=== PATIENT | female | born 2000 | race Caucasian/White ===

== ENCOUNTER 2020-03-21 | Inpatient (IN) ==
[2020-03-21] MEDS ORDERED: OXYTOCIN/DEXTROSE 5%-WATER 30 UNITS/500 ML BAG IV ONE ×2 (00:05→17:49)
[2020-03-21] MEDS ORDERED: RINGER'S SOLUTION,LACTATED 1,000 ML IV ONE (00:05)
[2020-03-21] MEDS ORDERED: ONDANSETRON 4 MG TAB.RAPDIS PO PRN (00:05)
[2020-03-21] MEDS ORDERED: PENICILLIN G POTASSIUM 5 MILLIONUNT in DEXTROSE 5 % IN WATER 100 ML IV ONE ×2 (00:05)
[2020-03-21] MEDS ORDERED: BUTORPHANOL TARTRATE 2 MG/ML VIAL IV PRN ×2 (00:05)
[2020-03-21] MEDS ORDERED: LIDOCAINE HCL 50 ML VIAL PERI PRN (00:05)
[2020-03-21] MEDS: RINGER'S SOLUTION,LACTATED 1,000 ML IV PRN ×2 (00:23→08:20)
[2020-03-21 01:24] LABS: Cocaine Ur Negative (NEGATIVE); Urine Barbiturate Negative (NEGATIVE); Urine Benzodiazepines Negative (NEGATIVE); Urine Opiates Negative (NEGATIVE); Urine PCP Negative (NEGATIVE)
[2020-03-21 01:28] LABS: Urine THC Positive (NEGATIVE)
[2020-03-21] MEDS: PENICILLIN G POTASSIUM 2.5 MILLIONUNT in DEXTROSE 5 % IN WATER 100 ML IV SCH ×6 (04:28→12:30)
--- NOTE | 2020-03-21 09:00 | HP ---
Chief Complaint - Chief Complaint Date of Service: 03/21/20 Time of Service: 08:50 Chief Complaint: Induction of labor History of Present Illness: 19 year old at 39w 0d who presents to labor and delivery for an elective IOL. She reports regular ctx. She denies vb or lof. Fetus is active. Medical History (Last Reviewed 03/21/20 @ 08:55 by Ale Patel MD) Anxiety Borderline personality disorder Surgical History: Surgical History (Last Reviewed 03/21/20 @ 08:55 by Ale Patel MD) H/O myringotomy History of adenoidectomy Hx of tonsillectomy Family History: Family History (Last Reviewed 03/21/20 @ 08:55 by Ale Patel MD) Mother Diabetes Asthma COPD (chronic obstructive pulmonary disease) Father Anxiety Social History: (Last Reviewed 03/21/20 @ 08:55 by Ale Patel MD) Social History: adopted: No Marital status: Single household members: family current occupational status: unemployed current occupational exposures/hazards: No Highest education level completed: 10th grade Service: No Tobacco: Smoking Status: Current every day smoker tobacco type: cigarettes Smoking cigarettes per day: 2 Years smoked: 8 Smoking pack-years: 0.80 Alcohol: details: none since +UPT Substance Use: substance use type: marijuana, methamphetamine, prescription drug, other details: resperidol Dietary Habits: caffeine: No Pets: pets and animals: dog(s) Review Of Systems (GEN) - Review of Systems Generalized/Overall Review: Present: No Symptoms Reported Misc: All systems neg except as marked Allergies/Adverse Reactions: Allergies Allergy/AdvReac Type Severity Reaction Status Date / Time No Known Allergies Allergy Verified 03/21/20 00:07 Home Medications: HOME MEDICATIONS buspirone 10 mg tablet 10 mg PO BID #60 tab 01/05/20 [Last Taken Unknown] prenat.vits,sandie,xse-ouha-ytemw 1 tab PO DAILY #90 tab 01/05/20 [Last Taken Unknown] Exam - Exam Vital Signs: Vital Signs - Last Taken Temp 36.1 C 03/21/20 00:32 Pulse 118 H 03/21/20 00:32 Resp 22 H 03/21/20 00:32 BP 120/58 03/21/20 00:32 Pulse Ox 98 03/21/20 00:32 Constitutional: Present: Alert, Oriented x3, Cooperative, No distress ENT Exam: Present: hearing grossly normal Eye Exam: bilateral eye: normal inspection Back Exam: Present: normal inspection Breasts: Present: Exam deferred Respiratory: Present: lungs clear, normal breath sounds, no respiratory distress Cardiovascular/Chest: Present: regular rate, rhythm Abdomen: Present: soft, nontender, nondistended /Rectal: Present: Other - 4-5/80/-2 AROM for clear fluid Extremity: Present: non-tender, no calf tenderness Skin Exam: Present: normal color, warm/dry, no cyanosis Appearance: Present: appropriate appearance Eye contact: Present: cooperative Thoughts: Present: normal thought pattern Diagnostic Studies: Abnormal Lab Results 03/21/20 Range/Units 00:05 Urine Amphetamine Positive H (NEGATIVE) Urine Marijuana (THC) Positive H (NEGATIVE) Laboratory Results Urine Opiates Screen Negative (NEGATIVE) 03/21/20 00:05 Barbiturate Screen Negative (NEGATIVE) 03/21/20 00:05 Ur Phencyclidine Scrn Negative (NEGATIVE) 03/21/20 00:05 Urine Amphetamine Positive (NEGATIVE) H 03/21/20 00:05 U Benzodiazepines Scrn Negative (NEGATIVE) 03/21/20 00:05 Urine Cocaine Screen Negative (NEGATIVE) 03/21/20 00:05 Urine Marijuana (THC) Positive (NEGATIVE) H 03/21/20 00:05 Blood Type O Positive 03/21/20 00:20 Antibody Screen Negative 03/21/20 00:20 Assessment/Plan - Narrative Narrative: 19 year old at 39w 0d Elective IOL: on pitocin currently at 18 milliunits. AROM for clear fluid. FHT reactive and reassuring Maternal drug use during : positive for THC and amphetamines on admission to L&D History of GC/CT this : chlamydia positive recently, patient treated, CT rechecked on admission to L&D History of UTI: negative test of cure Smoker GBS positive: intrapartum prophylaxis - Assessment/Plan (1) 39 weeks gestation of Problem: Acute (2) Positive GBS test Problem: Acute (3) Smoker Problem: Acute (4) Marijuana use Problem: Acute (5) History of amphetamine abuse Problem: Acute (6) History of gonorrhea Problem: Acute (7) History of chlamydia Problem: Acute (8) History of UTI Problem: Acute
[2020-03-21] MEDS ORDERED: BUPIVACAINE HCL/0.9 % NACL/PF 250 ML EP PRN (09:46)
[2020-03-21] MEDS ORDERED: NALOXONE HCL 1 MG/1 ML SYRG IV PRN (09:46)
[2020-03-21] MEDS ORDERED: ONDANSETRON HCL/PF 2 MG/ML VIAL IV PRN (09:46)
[2020-03-21] MEDS ORDERED: fentaNYL CITRATE/PF 50 MCG/ML AMPUL IT SCH (10:00)
--- NOTE | 2020-03-21 10:40 | ANES ---
Post Anesthesia Discharge - Transfer of Care Transfer of Care handoff given to nurse: Yes - Anesthesia Post Op Note Anesthesia Post Op Note: care transferred to OB RN
--- NOTE | 2020-03-21 10:40 | ANES ---
Anesthesia Pre Procedure Eval Vitals/Labs: Last Vital Signs Temp 36.1 C 03/21/20 00:32 Pulse 118 H 03/21/20 00:32 Resp 22 H 03/21/20 00:32 BP 120/58 03/21/20 00:32 Pulse Ox 98 03/21/20 00:32 HOME MEDICATIONS buspirone 10 mg tablet 10 mg PO BID #60 tab 01/05/20 [Last Taken Unknown] prenat.vits,sandie,iob-uwkc-zcsub 1 tab PO DAILY #90 tab 01/05/20 [Last Taken Unknown] Allergies/Adverse Reactions: Allergies Allergy/AdvReac Type Severity Reaction Status Date / Time No Known Allergies Allergy Verified 03/21/20 00:07 - Planned Procedure Planned Procedure: elective induction Medication List Reviewed:: Yes Allergies Verified: Yes Medical History (Last Reviewed 03/21/20 @ 10:39 by Samuel Chilel CRNA) Anxiety Borderline personality disorder Surgical History (Last Reviewed 03/21/20 @ 10:39 by Samuel Chilel CRNA) H/O myringotomy History of adenoidectomy Hx of tonsillectomy Family History (Last Reviewed 03/21/20 @ 10:39 by Samuel Chilel CRNA) Mother Diabetes Asthma COPD (chronic obstructive pulmonary disease) Father Anxiety - Family Anesthesia History Family History:: no untoward family reactions to anesthesia - Airway/Neck/Teeth Within Normal Limits:: Yes Teeth Condition: intact Denture Type: None Neck Exam: full range of motion Mallampatti Score: 2 Thyromental (T-M) distance: > 6 cm Mandibulo Hyoid distance: > 3 cm - Respiratory Respiratory Physical: lungs clear Smoking Status: Current every day smoker Discussed smoking cessation including day of surgery: Yes Sleep Apnea currently treated: No Sleep Apnea by current assessment: No - Cardiovascular Tolerate Activity: Good Heart Sounds: S1 & S2, Regular - Gastrointestinal NPO since: 0800 - Anesthesia Assessment and Plan ASA Class: PS, II, E Anesthesia Type Plan: Epidural Planned difficult intubation/equipment available: No
--- NOTE | 2020-03-21 10:41 | ANES ---
Post Anesthesia Assessment - Vital Signs Vitals: Last Vital Signs Temp 36.1 C 03/21/20 00:32 Pulse 118 H 03/21/20 00:32 Resp 22 H 03/21/20 00:32 BP 120/58 03/21/20 00:32 Pulse Ox 98 03/21/20 00:32 Airway Patency: Normal - Mental Status Level Of Consciousness: Awake - Pain Level Pain Score: 2 - N/V Assessment Nausea/Vomiting Presence: None Dehydration:: No
--- NOTE | 2020-03-21 10:42 | ANES ---
Anesthesia Procedure Note Procedure Note: ANESTHESIA PROCEDURE NOTE Date of Procedure: 03/21/2020 Time of procedure: 1030. Performed by: Jordan Chilel CRNA Back Up Worker: None. Preprocedure diagnosis: Active labor. Post procedure diagnosis: Same. Procedure: Insertion of labor epidural. Indications: The patient is a 19-year-old prima para female in active labor requesting labor epidural for pain management. Findings: See below. Details of the procedure: The patient was placed in a sitting position. Back was prepped with DuraPrep. Patient was then draped in a sterile fashion. Lidocaine 1% was infiltrated to the skin and subcutaneous tissues at the level of the L3 4 interspace. The epidural space was identified using a 18-gauge Tuohy needle with [id number] technique. 20 mcg fentanyl was given intrathecally using a 27 ga. spinal needle. Epidural catheter was inserted without difficulty. Negative test dose was elicited using 5 mL of 1.5% preservative-free lidocaine plus epinephrine 1 200,000. The epidural catheter was then taped and secured in place. EBL: Minimal. Fluids: N/A. Specimen: N/A. Post procedure condition: The patient tolerated the procedure well. No complications were noted. Thank you for this consultation. Sher CRNA
--- NOTE | 2020-03-21 17:48 | OR ---
Operative Report - Dictated Report Narrative: Date of delivery: 03/21/2020 Time of delivery: 1720 Gender: male weight: 3374 grams APGARS: 8/9 Procedure: Description of the procedure: The patient is a 19 year old at 39w 0d who presented to labor and delivery for an elective induction of labor. She progressed to complete dilation. She delivered a viable male infant in the direct OA presentation. A tight nuchal cord was identified and cut at the perineum. The shoulders delivered without any difficulty followed by the rest of the . The placenta was delivered by expression and appeared intact. Bilateral labial lacerations were noted. Only the left labial laceration was repaired as it was extensive and involved the clitoris. A 2-0 vicryl suture was used. EBL: 350 mL Complications: none Specimens: none History for MU Definition: * The number of deliveries resulting in a live the patient experienced prior to current hospitalization * The previous delivery of live twins or any live multiple gestation is considered one live event. *If primagravida or nulliparous is documented select zero for the number of previous live births. Live Events: 0
[2020-03-21] MEDS ORDERED: diphenhydrAMINE HCL 25 MG CAPSULE PO PRN (17:49)
[2020-03-21] MEDS ORDERED: GLYCERIN/WITCH HAZEL LEAF 40 APPL BOX TP PRN (17:49)
[2020-03-21] MEDS ORDERED: HYDROcodone/ACETAMINOPHEN 1 EACH TABLET PO PRN ×2 (17:49)
[2020-03-21] MEDS ORDERED: HYDROCORTISONE 30 APPL TUBE TP PRN (17:49)
[2020-03-21] MEDS ORDERED: BISACODYL 10 MG SUPP.RECT RC PRN (17:49)
[2020-03-21] MEDS ORDERED: SENNOSIDES 8.6 MG TABLET PO PRN (17:49)
[2020-03-21] MEDS ORDERED: BENZOCAINE/MENTHOL 81 SPRAY CAN TP PRN (17:49)
[2020-03-21] MEDS: IBUPROFEN 800 MG TABLET PO PRN (19:46)
[2020-03-21] MEDS: DOCUSATE SODIUM 100 MG CAPSULE PO SCH (20:37)
[2020-03-22] MEDS: IBUPROFEN 800 MG TABLET PO PRN ×2 (08:14→16:36)
[2020-03-22] MEDS: DOCUSATE SODIUM 100 MG CAPSULE PO SCH ×2 (08:14→22:53)
--- NOTE | 2020-03-22 09:00 | PN ---
Subjective - Date and Time Seen Date: 03/22/20 Time: 08:58 Subjective Narrative: Patient without complaints Objective Objective Narrative: See vital signs - Review of Systems Generalized/Overall Review: Reports: No Symptoms Reported Misc: All systems neg except as marked - Vitals Vitals: Last Vital Signs Temp 37.1 C 03/22/20 08:05 Pulse 102 H 03/22/20 08:05 Resp 20 03/22/20 08:05 BP 121/61 03/22/20 08:05 Pulse Ox 98 03/22/20 08:05 - Exam Constitutional: Present: Alert, Oriented x3, Cooperative, No distress ENT Exam: Present: hearing grossly normal Abdomen: Present: soft, nontender, nondistended - fundus is firm Extremity: Present: non-tender, no calf tenderness Skin Exam: Present: normal color, warm/dry, no cyanosis Appearance: Present: appropriate appearance Eye contact: Present: cooperative, good eye contact Thoughts: Present: normal thought pattern Cauti Physician Documentation - Urinary Catheter Management Urethral (Beck) Urethral Indwelling: No Date of Insertion: 03/21/20 Time of Insertion: 11:00 Date of Removal: 03/21/20 Time of Removal: 16:35 Assessment/Plan Plan Narrative: PPD 1 s/p Doing well Discharge tomorrow - Problems/Diagnosis (1) 39 weeks gestation of Problem: Acute (2) Positive GBS test Problem: Acute (3) Smoker Problem: Acute (4) Marijuana use Problem: Acute (5) History of amphetamine abuse Problem: Acute (6) History of gonorrhea Problem: Acute (7) History of chlamydia Problem: Acute (8) History of UTI Problem: Acute
[2020-03-23 08:11] VITALS: BP 128/63
--- NOTE | 2020-03-23 10:14 | PN ---
Subjective - Date and Time Seen Date: 03/23/20 Time: 10:13 Subjective Narrative: Patient without complaints Objective Objective Narrative: See vital signs - Review of Systems Generalized/Overall Review: Reports: No Symptoms Reported Misc: All systems neg except as marked - Vitals Vitals: Last Vital Signs Temp 36.8 C 03/23/20 08:10 Pulse 98 03/23/20 08:10 Resp 20 03/23/20 08:10 BP 128/63 03/23/20 08:10 Pulse Ox 98 03/23/20 08:10 - Exam Constitutional: Present: Alert, Oriented x3, Cooperative, No distress Abdomen: Present: soft, nontender, nondistended - fundus is firm Extremity: Present: non-tender, no calf tenderness Skin Exam: Present: normal color, warm/dry, no cyanosis Appearance: Present: appropriate appearance Eye contact: Present: cooperative Thoughts: Present: normal thought pattern Cauti Physician Documentation - Urinary Catheter Management Urethral (Beck) Urethral Indwelling: No Date of Insertion: 03/21/20 Time of Insertion: 11:00 Date of Removal: 03/21/20 Time of Removal: 16:35 Assessment/Plan Plan Narrative: PPD 2 s/p Doing well Discharge today - Problems/Diagnosis (1) 39 weeks gestation of Problem: Acute (2) Positive GBS test Problem: Acute (3) Smoker Problem: Acute (4) Marijuana use Problem: Acute (5) History of amphetamine abuse Problem: Acute (6) History of gonorrhea Problem: Acute (7) History of chlamydia Problem: Acute (8) History of UTI Problem: Acute
[2020-03-23] MEDS: DOCUSATE SODIUM 100 MG CAPSULE PO SCH (10:56)
[2020-03-23] MEDS: IBUPROFEN 800 MG TABLET PO PRN (10:56)
== END 2020-03-23 14:25 | disposition home or self-care (01) | DRG 768 ==
LOC: OB
PROVIDERS: ADMIT Obstetrics & Gynecology; ATTEND Obstetrics & Gynecology
CPT/HCPCS: 59025; 80307; 86850; 87491; 87591